=== PATIENT | female | born 1970 | race Asian ===

== ENCOUNTER 2017-03-13 14:33 | Emergency (ER) | payer SELFPAY ==
[~2017-03-13] VITALS: Ht 160 cm; Wt 55.3 kg
[2017-03-13 15:08] VITALS: BP 147/76
[2017-03-13] MEDS ORDERED: IOHEXOL 300 MG/ML 100ML VIAL. IV ONE (16:15)
--- NOTE | 2017-03-13 16:28 | ED.ADGEN ---
Past Medical History Past Medical History: Other Additional Past Medical Histor: pneumothorax Past Surgical History: Alcohol Use: Occasionally Drug Use: None Adult General Chief Complaint Chief Complaint: FACE PROBLEM HPI HPI Patient is a 46 year old woman, with no significant past medical history, who presents to the emergency department with a complaint of sudden onset of a sharp shooting pain that radiates down the left side of her face associated with facial "tightening", and tingling, along with a headache and blurred vision in her left eye. Patient states that this occurred after having sexual intercourse and an orgasm about 2 hours prior to my evaluation. She states that she's been having headaches after sexual intercourse for the past several weeks , states currently the headache is coming and going, is mild in nature, and that she is still experiencing some numbness and tingling along the top of her scalp, although not radiating down her face at this time. She states that when this occurred she did have some tingling exited into her left arm, denies any weakness, any nausea or vomiting, any chest pain or shortness breath. No history of head injury, AVMs, or other concerning history noted by the patient, recent travel or surgery, no lightheadedness or dizziness, patient was adopted and does not know her family history. Review of Systems Review of Systems Constitutional: Denies fever or chills. [] Eyes: Denies change in visual acuity. [] HENT: Denies nasal congestion or sore throat. [] Respiratory: Denies cough or shortness of breath. [] Cardiovascular: Denies chest pain or edema. [] GI: Denies abdominal pain, nausea, vomiting, bloody stools or diarrhea. [] : Denies dysuria. [] Musculoskeletal: Denies back pain or joint pain. [] Integument: Denies rash. [] Neurologic: Denies focal weakness, complaining of left-sided headache, with tingling in the face and scalp. Endocrine: Denies polyuria or polydipsia. [] Lymphatic: Denies swollen glands. [] Psychiatric: Denies depression or anxiety. [] Current Medications Current Medications Current Medications Medications (Trade) Dose Ordered Sig/Rosita Start Time Stop Time Status Last Admin Dose Admin Iohexol (Omnipaque 300 Mg/ml) 75 ml 1X ONCE 03/13/17 16:15 03/13/17 16:17 DC 03/13/17 17:49 75 ML Naproxen (Naprosyn) 500 mg 1X ONCE 03/13/17 20:30 03/13/17 20:34 DC 03/13/17 20:44 500 MG Sodium Chloride 1,000 ml @ 1,000 mls/hr 1X ONCE 03/13/17 18:45 03/13/17 19:44 DC 03/13/17 18:55 1,000 MLS/HR Trimethoprim/ Sulfamethoxazole (Bactrim Ds) 1 tab 1X ONCE 03/13/17 20:30 03/13/17 20:34 DC 03/13/17 20:44 1 TAB Allergies Allergies Allergies Coded Allergies Type Severity Reaction Last Updated Verified Penicillins Allergy Unknown 09/29/14 No Physical Exam Physical Exam Constitutional: Well developed, well nourished, no acute distress, non-toxic appearance. [] HENT: Normocephalic, atraumatic, bilateral external ears normal, oropharynx moist, no oral exudates, nose normal. [] Eyes: PERRLA, EOMI, conjunctiva normal, no discharge. [] Neck: Normal range of motion, no tenderness, supple, no stridor. [] Cardiovascular:Heart rate regular rhythm, no murmur, S1, S2, no rubs or gallops. [] Lungs & Thorax: Bilateral breath sounds clear to auscultation, no chest wall crepitus or tenderness. [] Abdomen: Bowel sounds normal, soft, no tenderness, no masses, no pulsatile masses. [] Skin: Warm, dry, no erythema, no rash. [] Back: No tenderness, no CVA tenderness. [] Extremities: No tenderness, no cyanosis, no clubbing, ROM intact, no edema. Negative Homans sign. [] Neurologic: Alert and oriented X 3, normal motor function, normal sensory function, no focal deficits noted. []Patient with 5 out of 5 strength in all extremities, patient noted to have visual acuities of 20/50 on the left, and 20/ 70 on the right, she states she does wear reading glasses, the left eye is where she is having issues. Patient with diminished sensation she describes on the "cap" of her head, normal cranial nerve function noted. Psychologic: Affect normal, judgement normal, mood normal. [] Current Patient Data Vital Signs Vital Signs Date Time Temp Pulse Resp B/P (MAP) Pulse Ox O2 Delivery O2 Flow Rate FiO2 03/13/17 15:08 97.6 106 16 147/76 (99) 98 Room Air 97.6 Lab Values Laboratory Tests Test 03/13/17 17:05 03/13/17 17:06 03/13/17 17:10 Urine Opiates Screen Neg (NEG) Urine Methadone Screen Neg (NEG) Urine Barbiturates Neg (NEG) Urine Phencyclidine Screen Neg (NEG) Urine Amphetamine/Methamphetamine Neg (NEG) Urine Benzodiazepines Screen Neg (NEG) Urine Cocaine Screen Neg (NEG) Urine Cannabinoids Screen Pos (NEG) Urine Ethyl Alcohol Neg (NEG) White Blood Count 5.8 x10^3/uL (4.0-11.0) Red Blood Count 3.60 x10^6/uL (3.50-5.40) Hemoglobin 11.3 g/dL (12.0-15.5) L Hematocrit 34.3 % (36.0-47.0) L Mean Corpuscular Volume 95 fL (79-100) Mean Corpuscular Hemoglobin 31 pg (25-35) Mean Corpuscular Hemoglobin Concent 33 g/dL (31-37) Red Cell Distribution Width 15.9 % (11.5-14.5) H Platelet Count 369 x10^3/uL (140-400) Neutrophils (%) (Auto) 63 % (31-73) Lymphocytes (%) (Auto) 27 % (24-48) Monocytes (%) (Auto) 8 % (0-9) Eosinophils (%) (Auto) 1 % (0-3) Basophils (%) (Auto) 1 % (0-3) Neutrophils # (Auto) 3.6 x10^3uL (1.8-7.7) Lymphocytes # (Auto) 1.6 x10^3/uL (1.0-4.8) Monocytes # (Auto) 0.4 x10^3/uL (0.0-1.1) Eosinophils # (Auto) 0.1 x10^3/uL (0.0-0.7) Basophils # (Auto) 0.1 x10^3/uL (0.0-0.2) Urine Collection Type Unknown Urine Color Yellow Urine Clarity Clear Urine pH 6.0 Urine Specific [place] 1.015 Urine Protein Negative mg/dL (NEG-TRACE) Urine Glucose (UA) Negative mg/dL (NEG) Urine Ketones (Stick) 40 mg/dL (NEG) Urine Blood Large (NEG) Urine Nitrite Positive (NEG) Urine Bilirubin Negative (NEG) Urine Urobilinogen Dipstick 0.2 mg/dL (0.2 mg/dL) Urine Leukocyte Esterase Negative (NEG) Urine RBC 6-10 /HPF (0-2) Urine WBC 0 /HPF (0-4) Urine Squamous Epithelial Cells Few /LPF Urine Bacteria Many /HPF (0-FEW) Urine Mucus Marked /LPF Sodium Level 139 mmol/L (136-145) Potassium Level 3.9 mmol/L (3.5-5.1) Chloride Level 101 mmol/L (98-107) Carbon Dioxide Level 27 mmol/L (21-32) Anion Gap 11 (6-14) Blood Urea Nitrogen 8 mg/dL (7-20) Creatinine 0.6 mg/dL (0.6-1.0) Estimated GFR (Cockcroft-Gault) 107.6 Glucose Level 90 mg/dL (70-99) Calcium Level 9.0 mg/dL (8.5-10.1) POC Urine HCG, Qualitative Hcg negative (Negative) Laboratory Tests 03/13/17 17:06 Laboratory Tests 03/13/17 17:06 EKG EKG EC: Heart rate is 87 beats/minute, upright axis and QTC of 424, MS 136, QR 72, mild baseline artifact noted, no ST elevations or depressions, does not meet STEMI criteria, as interpreted by me. Radiology/Procedures Radiology/Procedures [][facility] [address] [place] [address] IMAGING REPORT Signed PATIENT: JESSI OSORIO ACCOUNT: [id number] : 1970 LOCATION: ER AGE: 46 SEX: F EXAM STATUS: REG ER ORD. PHYSICIAN: JAISON LIMA DO REASON: WAN/facial numbness PROCEDURE: CT HEAD WO CONTRAST CT Head W/O Contrast: History: WAN AND VISION PROBLEM AFTER SEXUAL INTERCOURSE TODAY Comparison: none Axial images were obtained without contrast. The lara and white matter appears normal and symmetrical for the patients age. There is no mass effect, extraaxial fluid collections or hydrocephalus. There is no gross bleed. There is no focal loss of lara-white matter distinction to suggest acute ischemia, i.e. stroke. Impression: No acute findings. PQRS Compliance Statement: One or more of the following individualized dose reduction techniques were utilized for this examination: 1. Automated exposure control 2. Adjustment of the mA and/or kV according to patient size 3. Use of iterative reconstruction technique Electronically signed by: Patricia Macias III, MD (03/13/2017 7:15 PM) [facility] DICTATED and SIGNED BY: PATRICIA MACIAS III, MD DATE: 03/13/171913 CC: JAISON LIMA DO; NO PCP ~ Impressions: [facility] [address] [place] [address] IMAGING REPORT Signed PATIENT: JESSI OSORIO ACCOUNT: [id number] : 1970 LOCATION: ER AGE: 46 SEX: F EXAM STATUS: REG ER ORD. PHYSICIAN: JAISON LIMA DO REASON: WAN/facial numbness PROCEDURE: CT HEAD WO CONTRAST CT Head W/O Contrast: History: WAN AND VISION PROBLEM AFTER SEXUAL INTERCOURSE TODAY Comparison: none Axial images were obtained without contrast. The lara and white matter appears normal and symmetrical for the patients age. There is no mass effect, extraaxial fluid collections or hydrocephalus. There is no gross bleed. There is no focal loss of lara-white matter distinction to suggest acute ischemia, i.e. stroke. Impression: No acute findings. PQRS Compliance Statement: One or more of the following individualized dose reduction techniques were utilized for this examination: 1. Automated exposure control 2. Adjustment of the mA and/or kV according to patient size 3. Use of iterative reconstruction technique Electronically signed by: Patricia Macias III, MD (03/13/2017 7:15 PM) [facility] DICTATED and SIGNED BY: PATRICIA MACIAS III, MD DATE: 03/13/171913 CC: JAISON LIMA DO; NO PCP ~ Course & Med Decision Making Course & Med Decision Making Pertinent Labs and Imaging studies reviewed. (See chart for details) Due to patient's complaints, and location of symptoms, her discussion at bedside CT of the head and CTA will be obtained from discussion with radiology for those sedation of her symptoms rule out any occult intracranial pathology. Patient has been experiencing specific symptoms of facial changes and tingling and tightness, for about 3 hours now, with headache and intermittent over the past several weeks. Patient has no acute vital signs are within normal limits as stated, and patient has no obvious neuro deficits on examination. Laboratory studies reveal a nitrate positive urinary tract infection, with evidence of mild dehydration. As stated patient is neurologically intact, imaging does not reveal any concerning findings. I did discuss findings and presentation with history with Dr. Bolanos of neurology, he does not have any additional recommendations at this time for additional evaluation in the ED, as patient's evaluation of this point has been unremarkable, states the headache such as this can be common in the postcoital state, recommends the patient consider premedicated about an hour have have an and said, also recommends the patient follow up with neurology for additional evaluation as needed. I did discuss this with patient, she states that she is feeling better with very mild headache that is intermittent at this time currently, with no other new or concerning symptoms. She states that she is ready to be discharged home, I did discuss use of Bactrim, for the $4 list, importance of staying well-hydrated, and recommendations from neurology. She states she does not have insurance, therefore does not currently have a primary care provider, did provide her with a clinic list and other follow-up information, along with clear and detailed return instructions precautions, patient voiced understanding and agreement with instructions and precautions as stated, received first dose of antibiotic in the ED without issue, discharged home in stable condition with plan, prescriptions, and precautions as above. Dragon Disclaimer Dragon Disclaimer This electronic medical record was generated, in whole or in part, using a voice recognition dictation system. Departure Impression: Primary Impression: Headache Additional Impression: Left face and left arm tingling Disposition: 01 HOME, SELF-CARE Condition: IMPROVED Scripts Sulfamethoxazole/Trimethoprim (BACTRIM DS TABLET) 1 Each Tablet 1 TAB PO BID, #6 TAB Prov: JAISON LIMA DO 03/13/17 Problem Qualifiers JAISON LIMA DO Mar 13, 2017 16:28
[2017-03-13 17:19] LABS: BASO # 0.1 x10^3/uL (0.0-0.2); BASO % 1 % (0-3); EOS % 1 % (0-3); HEMATOCRIT 34.3 % (36.0-47.0); HEMOGLOBIN 11.3 g/dL (12.0-15.5); LYMPH # 1.6 x10^3/uL (1.0-4.8); LYMPH % 27 % (24-48); MEAN CORPUSCULAR HEMOGLOBIN 31 pg (25-35); MEAN CORPUSCULAR HGB CONC 33 g/dL (31-37); MEAN CORPUSCULAR VOLUME 95 fL (79-100); MONO % 8 % (0-9); NEUT % 63 % (31-73); PLATELET COUNT 369 x10^3/uL (140-400); RED CELL DISTRIBUTION WIDTH 15.9 % (11.5-14.5); WHITE BLOOD COUNT 5.8 x10^3/uL (4.0-11.0)
[2017-03-13 17:21] LABS: BILIRUBIN,URINE NEGATIVE (NEG); GLUCOSE,URINE NEGATIVE (NEG); NITRITE,URINE POSITIVE (NEG); PROTEIN,URINE NEGATIVE (NEG-TRACE); UROBILINOGEN,URINE 0.2 mg/dL (0.2 mg/dL)
[2017-03-13 17:32] LABS: BACTERIA,URINE MANY /HPF (0-FEW); SQUAMOUS EPITHELIAL CELL,UR FEW /LPF; WBC,URINE 0 /HPF (0-4)
[2017-03-13 17:34] LABS: CREATININE 0.6 mg/dL (0.6-1.0); GFR 107.6; POTASSIUM 3.9 mmol/L (3.5-5.1)
[2017-03-13] MEDS ORDERED: IV NORMAL SALINE 1000ML BAG 1,000 ML IV ONE (18:45)
--- NOTE | 2017-03-13 19:18 | RAD ---
CT Head W/O Contrast: History: WAN AND VISION PROBLEM AFTER SEXUAL INTERCOURSE TODAY Comparison: none Axial images were obtained without contrast. The laar and white matter appears normal and symmetrical for the patients age. There is no mass effect, extraaxial fluid collections or hydrocephalus. There is no gross bleed. There is no focal loss of lara-white matter distinction to suggest acute ischemia, i.e. stroke. Impression: No acute findings. RS Compliance Statement: One or more of the following individualized dose reduction techniques were utilized for this examination: 1. Automated exposure control 2. Adjustment of the mA and/or kV according to patient size 3. Use of iterative reconstruction technique Electronically signed by: Devyn Huitron III, MD (03/13/2017 7:15 PM) [facility]
--- NOTE | 2017-03-13 19:23 | RAD ---
CTA head with contrast History: Postcoital headache and facial tingling and vision change in left eye Technique: Axial images were obtained of the head after the intravenous administration of 75 mL of Omni 300 IV contrast. Multiplanar reconstruction was performed on an independent work station including 3D MIP imaging and 3D angiographic imaging. Comparison: none CTA head with and without contrast. Findings: Brain: The lara and white matter appears symmetrical. There is no mass effect, extra-axial fluid collections or hydrocephalus. There is no gross bleed. Distal carotid arteries: normal caliber Vertebral basilar system normal Major cerebral arteries: normal Impression: no acute findings end impression PQRS Compliance Statement: One or more of the following individualized dose reduction techniques were utilized for this examination: 1. Automated exposure control 2. Adjustment of the mA and/or kV according to patient size 3. Use of iterative reconstruction technique Electronically signed by: Devyn Huitron III, MD (03/13/2017 7:19 PM) [facility]
[2017-03-13 19:33] LABS: BARBITURATES NEG (NEG); BENZODIAZEPINES NEG (NEG); CANNABINOIDS POS (NEG); COCAINE NEG (NEG); METHADONE NEG (NEG); OPIATES NEG (NEG); PHENCYCLIDINE NEG (NEG)
[2017-03-13] MEDS ORDERED: SMZ/TMP 800/160MG TABLET. PO ONE (20:30)
[2017-03-13] MEDS ORDERED: NAPROXEN 500 MG TABLET PO ONE (20:30)
[2017-03-13] MEDS ORDERED: SULF1TAB24 PO (21:01)
--- NOTE | 2017-03-14 09:07 | EKG ---
[facility] [address] [place] [address] Test Date: 2017-03-13 Test Time: 17:05:20 Pat Name: JESSI OSORIO Department: Room: Gender: F Creative Producer: : [id number] Requested By: JAISON LIMA Order Number: [id number] Reading MD: Aravind Qureshi MD Measurements Intervals [place] Rate: 87 P: 44 HI: 136 QRS: 57 QRSD: 72 T: 30 QT: 348 QTc: 424 Interpretive Statements SINUS RHYTHM Electronically Signed On 03-18-2017 16:46:27 SCRATCHER by Aravind Qureshi MD
== END 2017-03-13 21:09 | disposition home or self-care (01) ==
LOC: ER 14:33
DX: R51 Headache (principal); R20.2 Paresthesia of skin; N39.0 Urinary tract infection, site not specified; E86.0 Dehydration; Z88.0 Allergy status to penicillin
CPT/HCPCS: 29125; 36415; 70450; 70496; 80048; 80307; 81001; 81025; 85025; 93005; 96360; 99285; J7030; Q9967; G0479